=== PATIENT | male | born 1985 | race African-American/Black ===

== ENCOUNTER 2019-06-13 01:49 | Emergency (ER) | payer OTHER ==
--- NOTE | 2019-06-13 01:58 | ED Physician Documentation ---
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 denies cp/palpitions or swelling of the neck or tongue. deneis any personal or family hx of HAE.) Review of Systems Ten Systems: 10 systems reviewed and negative Constitutional: reports: Reviewed and negative Eyes: reports: Reviewed and negative Ears: reports: Reviewed and negative Nose: reports: Reviewed and negative Throat: reports: Other (tingling in posterior oropharynx) Cardiac: reports: Reviewed and negative Respiratory: reports: Reviewed and negative GI: reports: Reviewed and negative : reports: Reviewed and negative Skin: reports: Rash Musculoskeletal: reports: Reviewed and negative Neurologic: reports: Reviewed and negative Psychiatric: reports: Reviewed and negative Endocrine: reports: Reviewed and negative Immunocompromised: reports: Reviewed and negative PD PAST MEDICAL HISTORY - Present Medications Home Medications: Ambulatory Orders Medication Instructions Recorded Confirmed EPINEPHrine [Epipen Jr] 0.3 mg IM ONCE #1 syringe 06/13/19 Methylprednisolone [Medrol Dose 1 each PO .PACKAGEINSTRUCTIONS 6 06/13/19 Pack] Days #1 each - Allergies Allergies/Adverse Reactions: Allergies Allergy/AdvReac Type Severity Reaction Status Date / Time No Known Drug Allergies Allergy Verified 06/13/19 02:18 PD ED PE NORMAL - Vitals Vital signs reviewed: Yes - General General: Alert and oriented X 3, No acute distress, Well developed/nourished - HEENT HEENT: Atraumatic, PERRL, EOMI, Ears normal, Moist mucous membranes, Pharynx benign, Dentition benign, Other (mild erythema in post op, no swelling, uvual midline, tolerating secretions, normal voice, no swelling of the tongue or floor of the mouth.) - Neck Neck: Supple, no meningeal sign - Cardiac Cardiac: RRR, No murmur - Respiratory Respiratory: Clear bilaterally - Abdomen Abdomen: Normal bowel sounds, Soft, Non tender, Non distended - Derm Derm: Normal color, Warm and dry, Other (diffuse urticarial rash of the b/l upper extremities, no involvement of the chest or back or LEs.) - Extremities Extremities: No deformity - Neuro Neuro: Alert and oriented X 3 - Psych Psych: Normal mood, Normal affect Results - Vitals Vitals: Vital Signs - 24 hr 06/13/19 06/13/19 02:00 03:00 Temperature 36.6 C Heart Rate 52 L 75 Respiratory 14 18 Rate Blood Pressure 128/70 98/80 O2 Saturation 100 95 Oxygen O2 Source Room air PD MEDICAL DECISION MAKING - ED course Complexity details: re-evaluated patient (03:11 rash resolved, airway patient, no swelling or redness of op. will dc home with scrip for epipen and medrol dose meagan. take benadryl and pepcid otc. [place] other (concerning findings in post op, will treat with im epi, iv steroid and antihistamines.) Departure - Departure Disposition: 01 Home, Self Care Clinical Impression: Allergic reaction Qualifiers: Encounter type: initial encounter Qualified Code(s): T78.40XA - Allergy, unspecified, initial encounter Condition: Good Instructions: ED Allergic Reaction General Other Follow-Up: STEFANIE MA DO [Primary Care Provider] - Prescriptions: EPINEPHrine [Epipen Jr] 0.3 mg IM ONCE #1 syringe Methylprednisolone [Medrol Dose Pack] 1 each PO .PACKAGEINSTRUCTIONS 6 Days #1 each Comments: follow up with medical today, take over the counter benadryl as needed. take medrol dose meagan as directed.
[2019-06-13] MEDS ORDERED: EPINEPHrine 1 MG/ML AMP ONE (02:02)
[2019-06-13] MEDS ORDERED: SODIUM CHLORIDE 0.9% 1,000 ML IV ONE (02:05)
[2019-06-13] MEDS ORDERED: methylPREDNISolone SUCCINATE 125 MG/2 ML VIAL IVP STA (02:06)
[2019-06-13] MEDS ORDERED: FAMOTIDINE 20 MG/2 ML VIAL IVP STA (02:06)
[2019-06-13] MEDS ORDERED: EPINEPHrine 1 MG/ML AMP IM STA (02:19)
[2019-06-13 03:25] VITALS: BP 106/66
== END 2019-06-13 03:24 | disposition home or self-care (01) ==
LOC: ED 01:49
DX: T78.40XA Allergy, unspecified, initial encounter (principal); L50.0 Allergic urticaria
CPT/HCPCS: 96361; 96374; 99283

== ENCOUNTER 2023-01-02 10:07 | Outpatient (CLI) | payer OTHER ==
--- NOTE | 2023-01-02 10:29 | Sleep Patient Instructions ---
Sleep Center Visit Summary - Patient Visit Information Reason for Visit: INITIAL CONSULTATION - Patient Instructions Instructions Attached: Sleep Study, Sleep Clinic Visit, Sleep Study Home Monitor Additional Instructions: You will be completing a sleep study, either an in-lab polysomnography (PSG) or home sleep study (HST). You will follow-up in the sleep care office after the sleep study is completed to hear the results and talk about therapy, if needed. You will be called by our office staff to schedule this appointment, but you may contact us with any questions. - Clinic Information Contact: [facility] [address] [place] [address] [email or web address] T: [phone]
--- NOTE | 2023-01-02 10:34 | SLEEP CARE CONSULTATION ---
Information from patient questionnaire entered by Mckenzie Barboza. I have reviewed and concur with the information entered by Mckenzie Barboza. This document represents the service I personally performed and the decisions made by me, Camilla Hurt ARNP. History of Present Illness Service Date and Time: 01/02/2023 1007 Reason for Visit: New patient Chief Complaint: reports: Snoring, Excessive daytime sleepiness, Fatigue Date of Onset: 12YRS Usual bedtime: [id number] Time it takes to fall asleep: LESS THAN 5MIN Snores at night: Yes Observed to quit breathing while asleep: No Sleeps alone due to snoring: No Number of times waking at night: 0 Reasons for waking at night: reports: Snoring, Other (SPOUSE WAKES ME UP TO ROLL OVER TO STOP SNORING). denies: Choking, Gasping for air Toss, Turn, or Twitch while sleeping: Yes Recalls having dreams: No Usually gets out of bed at: 0930 Feels refreshed in the morning: No Morning headache: No Sleepy or fatigued during the day: Yes Ever fallen asleep while driving: No Takes day naps: Yes (2-3 times a week for 30 minutes to 1-2 hours) Dreams during day naps: No Prior sleep studies: No Additional HPI information: I had the pleasure of seeing HUGH TUTTLE today regarding the possibility of him having a sleep disorder. His current complaints are snoring, excessive daytime sleepiness and fatigue. He states his is telling him that his s noring is getting worse. He states he will only wake up rested on the weekends because of his work schedule limiting sleep in time. He states his has never noted that he stops breathing. He does not remember dreaming. He feels his concentration could be better. He denies waking up gasping for air or feeling like he is choking. He has woke himself up snoring. 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 Patient is and lives in [place]. Have you smoked in the past 12 months: No Alcohol use: Yes Alcohol amount and frequency: 1 12OZ BEER 2-3 X WEEK Caffeine use: Yes Caffeine amount and frequency: 8-10 OZ EVERY MORNING Family History Family history of sleep disordered breathing: Yes Family Hx Sleep Apnea: Father: Snoring, Sibling: Snoring, Grandparent: Snoring Allergies and Home Medications Known drug allergies: No Drug allergies reviewed: Yes Home medication list reviewed: Yes (Zyrtec daily, OTC) Allergy and home medication list: Allergies No Known Drug Allergies Allergy (Verified 12/29/22 09:25) Review of Systems Weight gain over past 5 years: 20 Cardiovascular: denies: high blood pressure Respiratory: reports: sputum production Gastrointestinal: denies: heartburn Neurological: denies: headaches Psychiatric: denies: anxiety, depression Ear/Nose/Throat: reports: nasal congestion, sinus problems, wisdom teeth removed. denies: tonsillectomy Endocrine: reports: sluggishness Musculoskeletal: reports: back pain Immunologic: reports: sneezing, itching, allergies to food or environment (seasonal allergies) Physical Exam Vital signs obtained and entered by: MCKENZIE Saeed MA Blood Pressure: 126/64 (LEFT ARM) Cuff size: regular Heart Rate: 59 O2 Saturation: 99 Height: 6 ft Weight: 204 lb 6.4 oz Body Mass Index: 27.7 BMI Classification: Overweight Neck circumference: 16 Mouth and throat: narrow oropharynx Soft palate: long Hard palate: normal Uvula: long, edematous Uvula visualization: 25% Mallampati Class III Tongue: enlarged in size with teeth aponte on lateral edges Tonsils: small Neck: normal w/o lymphadenopathy or thyromegaly Heart: regular rate and rhythm Lungs: clear bilaterally Impression and Plan 1. Suspected Obstructive Sleep Apnea-Hypopnea Syndrome, as suggested by a history of loud and irregular snoring, unrefreshed sleep, cognitive impairment, and excessive daytime sleepiness. Narrow oropharynx and obesity are common predisposing factors for obstructive sleep apnea-hypopnea syndrome. I recommend proceeding to polysomnography to confirm the diagnosis and to assess severity. If the patient has significant sleep disordered breathing, a manual CPAP titration study will also be performed to find the optimal treatment pressure. I informed the patient of what the sleep studies involve and after some discussion, obtained agreement to proceed. The pathophysiology of obstructive sleep apnea-hypopnea syndrome was discussed with the patient and health risks of cardiovascular and cerebrovascular disease if not treated. Risks of drowsy driving discussed in detail and patient advised to avoid long distance driving and to parts puller at the first sign of drowsiness. Patient agreed to plan. * Schedule polysomnography. * Avoid long distance driving or driving when feeling sleepy. * Avoid alcohol, sedative and muscle relaxant around bedtime. * Attempt to lose weight. * Review instructions provided by trained office staff on how to prepare for the sleep study. * Return for follow-up after sleep study completed. Counseling Topics: Weight loss health impact Visit Type: In Office Time Spent with Patient (minutes): 30 Provider Statement: I spent 100% of the Face to Face Visit with the patient with greater than 50% spent counseling the patient and coordination of care.
[2023-01-02 10:41] VITALS: BP 126/64; O2SAT 99
== END 2023-01-02 10:08 | disposition home or self-care (01) ==
LOC: SC 10:07
PROVIDERS: ATTEND Nurse Practitioner Family
DX: R06.83 Snoring (principal); G47.10 Hypersomnia, unspecified; G47.8 Other sleep disorders
CPT/HCPCS: 99203; 99212

== ENCOUNTER 2023-02-01 19:30 | Outpatient (CLI) | payer OTHER | END 2023-02-01 19:31 | disposition home or self-care (01) | LOC: SC 19:30 | PROVIDERS: ATTEND Nurse Practitioner Family | DX: R06.83 Snoring (principal); G47.8 Other sleep disorders; G47.10 Hypersomnia, unspecified; R53.83 Other fatigue; E66.3 Overweight; Z68.27 Body mass index [BMI] 27.0-27.9, adult | CPT/HCPCS: 95810 ==

== ENCOUNTER 2023-02-23 13:52 | Outpatient (CLI) | payer OTHER ==
--- NOTE | 2023-02-23 14:06 | Sleep Patient Instructions ---
Sleep Center Visit Summary - Patient Visit Information Reason for Visit: Sleep study followup - Patient Instructions Additional Instructions: Your sleep study today was negative for significant sleep disordered breathing. However, you did have elevated respiratory episodes when sleeping on your back. You should avoid sleeping on your back to control these respiratory episodes. You were found to have episodes of snoring. There are different ways to control snoring including weight loss, oral devices made by a dentist or surgical options through ENT specialist. You should not use oral devices that do not fit properly because they can affect your bite. You should also check insurance coverage of oral devices for snoring because they may not be cover well. You may obtain a referral to an ENT specialist through your primary provider. Follow-up as needed. - Clinic Information Contact: [facility] [address] [place] [address] [email or web address] T: [phone]
--- NOTE | 2023-02-23 14:08 | SLEEP CARE CONSULTATION ---
Information from patient questionnaire entered by Mckenzie Barboza. I have reviewed and concur with the information entered by Mckenzie Barboza. This document represents the service I personally performed and the decisions made by , Camilla Hurt ARNP. History of Present Illness Service Date and Time: 02/23/2023 1352 Initial [place] Sleepiness Scale score: 12 (12/09/22) Current [place] Sleepiness Scale score: 10 (02/23/23) Additional HPI information: HUGH TUTTLE returns for follow up and results of the recently performed polysomnography. The patient was informed of the following findings: No significant sleep disordered breathing with an average AHI of 3.8 and william oxygen saturation of 89%. I explained the pathophysiology behind obstructive sleep apnea. Patient does not have sleep apnea and was advised how weight gain could increase the risk of developing sleep apnea in the future. I strongly encouraged the patient to lose weight. Patient does not have significant sleep disordered breathing but has elevated AHI in supine position so advised positional therapy. Methods to achieve positional management therapy were discussed; such as, positioning with pillows, wearing a T-shirt with tennis balls sewn into the back or commercially available positional products. Patient has loud snoring. Snoring can be reduced by weight loss. Weight loss is best achieved with diet consult. Patient instructed to contact PCP for referral. Snoring can also be treated with an oral appliance from a dentist. Advised to check insurance coverage. In addition, an ENT evaluation can be do to see if other treatment is indicated. Patient counseled not drink alcohol less than 4 hours before bedtime as it can increase snoring and apnea. Patient was cautioned about risks of drowsy driving until sleepiness symptoms resolve. Patient denies drowsy driving. Sleep Study - Results Type of Sleep Study: Polysomnography (COMPLETED 02/01/23) Prior sleep studies: No Polysomnography/Home Sleep Study results: IMPRESSION: The quality of the study is good. The patient had normal sleep efficiency. The sleep architecture was abnormal for mild sleep fragmentation and reduced amount of time spent in slow wave sleep (N3). Respiratory monitoring showed no significant sleep disordered breathing (AHI = 3.8) or hypoxia (william oxygen saturation of 89%). The few respiratory events occurred almost exclusively during supine sleep (supine AHI = 8.5; non-supine = 2.15). Snore was loud in intensity. There was no significant periodic leg movement of sleep. Cardiac rhythm was normal sinus rhythm without significant arrhythmia. No abnormal behavior (parasomnia) observed during the night. Allergies and Home Medications Known drug allergies: No Drug allergies reviewed: Yes Home medication list reviewed: Yes (no changes) Allergy and home medication list: Allergies No Known Drug Allergies Allergy (Verified 02/22/23 12:57) Review of Systems Review of systems same as previous: Yes (no changes) Physical Exam Vital signs obtained and entered by: MCKENZIE Saeed MA Blood Pressure: 120/70 (LEFT ARM) Cuff size: regular Heart Rate: 57 O2 Saturation: 98 Height: 6 ft Weight: 202 lb 9.6 oz Body Mass Index: 27.4 BMI Classification: Overweight Impression and Plan 1. Snoring but no significant sleep disordered breathing. However, he has an el evated AHI when sleeping supine and should avoid supine sleep. He voiced understanding. Patient advised that often weight loss will reduce snoring as well as apnea risk. An oral appliance can also be used for snoring. This would require a dental consultation. Patient cautioned not to use other online appliances as can cause bite issues. Patient is advised to check if insurance will cover. An ENT consult can also be helpful to determine if any other treatment is an option. 2. Overweight, unspecified. Currently patients BMI is 27.4. Obesity increases the risk of apnea, CPAP pressure requirements and overall health risks especially cardiovascular and diabetes. Thus patient is advised to lose weight. * Avoid supine sleep * Attempt to lose weight * Avoid alcohol consumption near bedtime * The patient is cautioned about driving until sleepiness is completely resolved. * Return as needed for follow up. Counseling Topics: Sleeping position, Weight loss health impact Visit Type: In Office Time Spent with Patient (minutes): 10 Provider Statement: I spent 100% of the Face to Face Visit with the patient with greater than 50% spent counseling the patient and coordination of care.
[2023-02-23 14:23] VITALS: BP 120/70; O2SAT 98
== END 2023-02-23 13:53 | disposition home or self-care (01) ==
LOC: SC 13:52
PROVIDERS: ATTEND Nurse Practitioner Family
DX: R06.83 Snoring (principal); E66.3 Overweight; Z68.27 Body mass index [BMI] 27.0-27.9, adult
CPT/HCPCS: 99212